=== PATIENT | male | born 1945 | race Caucasian/White ===

== ENCOUNTER → 2021-05-28 | Outpatient (CLI) | payer OTHER ==
--- NOTE | 2021-05-28 15:52 | Diagnostic Imaging Report ---
PROCEDURE: CT chest without contrast. TECHNIQUE: Multiple contiguous axial images were obtained through the chest without the use of intravenous contrast. Auto Exposure Controls were utilized during the CT exam to meet ALARA standards for radiation dose reduction. INDICATION: Sternal fracture, surgery, chest wall pain. COMPARISON: I have no previous. FINDINGS: There is visualization of incompletely fused transversely oriented fracture of the upper sternum. No offset of the cortex anteriorly or posteriorly and no angulation. Plate and screws anteriorly appeared intact. No hardware fracture. There is plating of the distal ribs and chondral cartilage of the second and third ribs associated with the postsurgical sternum. No rib deformity. No findings of costochondral cartilage dislocation. The clavicles and manubrial-clavicular relationship are unremarkable. No bony destructive process. No presternal or retrosternal fluid collection, hemorrhage, or abscess. Lungs showed scattered zones of partial atelectasis, predominantly right perihilar and at the left lung base. No findings of nato edema or pneumonia. No effusion, pneumothorax, or pneumomediastinum. The aorta is nonaneurysmal. No pericardial effusion. There are coronary artery atherosclerotic vascular calcifications. The visualized upper abdomen is nonacute. IMPRESSION: 1. Postoperative sternum and distal left rib and costal cartilage plating. Intact hardware without evidence for hardware loosening or hardware fracture. Incomplete bony fusion across the horizontally oriented upper sternal fracture without displacement or depression. No parasternal or mediastinal hemorrhage or other fluid collection. 2. Slight zones of pulmonary subsegmental atelectasis. Lungs are otherwise clear. No adenopathy, aneurysm, or pneumothorax. Dictated by: Dictated on workstation # [id number]
== END ==
LOC: RAD FS 12:12
DX: S22.22XD Fracture of body of sternum, subsequent encounter for fracture with routine healing (principal); X58.XXXD Exposure to other specified factors, subsequent encounter
CPT/HCPCS: 71250